=== PATIENT | female | born 1995 | race Caucasian/White ===

== ENCOUNTER 2017-06-16 20:56 | Emergency (ER) | payer MEDICAID ==
[~2017-06-16] VITALS: Ht 144.8 cm; Wt 69.9 kg
[2017-06-16 21:21] VITALS: BP 110/66
== END 2017-06-17 01:26 | disposition home or self-care (01) ==
LOC: ER 20:56
DX: J40 Bronchitis, not specified as acute or chronic (principal)

== ENCOUNTER 2017-08-14 20:32 | Emergency (ER) | payer MEDICAID ==
[~2017-08-14] VITALS: Ht 144.8 cm; Wt 69.9 kg
[2017-08-14 20:45] VITALS: BP 123/70
== END 2017-08-15 01:02 | disposition home or self-care (01) ==
LOC: ER 20:32
DX: J40 Bronchitis, not specified as acute or chronic (principal); F17.210 Nicotine dependence, cigarettes, uncomplicated
CPT/HCPCS: 81025

== ENCOUNTER 2017-09-08 21:02 | Emergency (ER) | payer MEDICAID ==
[~2017-09-08] VITALS: Ht 144.8 cm; Wt 69.9 kg
[2017-09-08 21:15] VITALS: BP 131/100
[2017-09-08] MEDS ORDERED: ALBUTEROL SULF 2.5 MG/0.5ML(0.5%) NEB SOLN NEB ONE (22:45)
[2017-09-08] MEDS ORDERED: IPRATROPIUM BROM 0.5 MG/2.5ML INH SOL NEB ONE (22:45)
[2017-09-09] MEDS ORDERED: methylPREDNISolone SOD SUCC 125 MG/2 ML VL ONE (01:28)
[2017-09-09] MEDS ORDERED: methylPREDNISolone SOD SUCC 125 MG/2 ML VL IM ONE (01:30)
[2017-09-09] MEDS ORDERED: ALBUTEROL SULF 2.5 MG/0.5ML(0.5%) NEB SOLN NEB ONE (01:30)
[2017-09-09] MEDS ORDERED: IPRATROPIUM BROM 0.5 MG/2.5ML INH SOL NEB ONE (01:30)
== END 2017-09-09 02:11 | disposition home or self-care (01) ==
LOC: ER 21:02
DX: J45.901 Unspecified asthma with (acute) exacerbation (principal); F17.210 Nicotine dependence, cigarettes, uncomplicated
CPT/HCPCS: 71045; 81025; 94640; 96372; 99285; J2930

== ENCOUNTER 2017-09-09 16:45 | Emergency (ER) | payer MEDICAID ==
[~2017-09-09] VITALS: Ht 144.8 cm; Wt 69.9 kg
[2017-09-09 17:06] VITALS: BP 142/86
[2017-09-09 18:22] LABS: Alcohol, Urine < 3.0 mg/dL (0-5); Amphetamine Screen, Urine NEGATIVE (NEGATIVE); Barbiturate Scree,Urine NEGATIVE (NEGATIVE); Benzodiazephine Screen, Urine NEGATIVE (NEGATIVE); Cannabinoid Screen, Urine POSITIVE (NEGATIVE); Cocaine Screen, Urine NEGATIVE (NEGATIVE); Opiate Scree,Urine NEGATIVE (NEGATIVE); Phencyclidine Screen, Urine NEGATIVE (NEGATIVE)
== END 2017-09-09 17:47 | disposition home or self-care (01) ==
LOC: EDBD 16:45 → ER 16:45
DX: R07.89 Other chest pain (principal); J45.909 Unspecified asthma, uncomplicated; F17.210 Nicotine dependence, cigarettes, uncomplicated; Z59.0 Homelessness
CPT/HCPCS: 80307; 93005

== ENCOUNTER 2017-09-17 13:21 | Emergency (ER) | payer MEDICAID ==
[~2017-09-17] VITALS: Ht 144.8 cm; Wt 68.0 kg
[2017-09-17 13:42] VITALS: BP 137/88
[2017-09-17 13:58] LABS: Urine Bacteria NONE SEEN /hpf (None Seen); Urine Blood Negative /uL (Negative); Urine Specific Gravity 1.002 (1.001-1.035); Urine WBC <1 /hpf (0 - 5)
[2017-09-17 16:07] LABS: Basophils # (auto) 0.1 uL; Basophils % (auto) 0.7 % (0.0-2.0); Eosinophils # (auto) 0.6 uL; Eosinophils % (auto) 5.6 % (0.0-7.0); Hematocrit 42.3 % (36.0-46.0); Hemoglobin 14.4 g/dL (12.2-16.2); Lymphocytes # (auto) 2.1 uL; Lymphocytes % (auto) 21.7 % (10.0-50.0); Mean Corpuscular Hemoglobin 30.9 pg (28.0-32.0); Mean Corpuscular Volume 90.8 fL (80.0-100.0); Monocytes # (auto) 0.8 uL; Monocytes % (auto) 7.9 % (0.0-12.0); Neutrophils # (auto) 6.3 uL; Neutrophils % (auto) 64.1 % (37.0-80.0); Nucleated Red Blood Cells % 0.1 %; Platelet Count (auto) 425 10^3/uL (140-450); Red Blood Cells 4.66 10^6/uL (4.0-5.20); Red Cell Distribution Width 13.7 % (11.8-14.3); White Blood Cell 9.9 10^3/uL (4.4-10.8)
[2017-09-17 16:09] LABS: Alcohol, Urine < 3.0 mg/dL (0-5); Amphetamine Screen, Urine NEGATIVE (NEGATIVE); Barbiturate Scree,Urine NEGATIVE (NEGATIVE); Benzodiazephine Screen, Urine NEGATIVE (NEGATIVE); Cannabinoid Screen, Urine POSITIVE (NEGATIVE); Cocaine Screen, Urine NEGATIVE (NEGATIVE); Opiate Scree,Urine NEGATIVE (NEGATIVE); Phencyclidine Screen, Urine NEGATIVE (NEGATIVE)
[2017-09-17 16:21] LABS: Albumin 3.7 g/dL (3.4-5.0); BUN/Creatinine Ratio 5.2; Calcium 8.3 mg/dL (8.5-10.1); Potassium 3.5 mmol/L (3.5-5.1)
[2017-09-17 16:23] LABS: Bilirubin, Total 0.3 mg/dL (0.2-1.0); Total Protein 7.2 g/dL (6.4-8.2)
== END 2017-09-17 16:03 | disposition home or self-care (01) ==
LOC: ER 13:21 → EDBD 13:21 → ER 16:03
DX: K59.00 Constipation, unspecified (principal); R10.84 Generalized abdominal pain; J45.909 Unspecified asthma, uncomplicated; F17.210 Nicotine dependence, cigarettes, uncomplicated; E66.9 Obesity, unspecified; Z68.32 Body mass index [BMI] 32.0-32.9, adult; Z76.0 Encounter for issue of repeat prescription; Z90.49 Acquired absence of other specified parts of digestive tract
CPT/HCPCS: 36415; 74022; 80053; 80307; 81001; 81025; 83690; 85025

== ENCOUNTER 2018-09-03 05:15 | Emergency (ER) | payer MEDICAID ==
[~2018-09-03] VITALS: Ht 144.8 cm; Wt 60.8 kg
[2018-09-03 07:26] LABS: Basophils # (auto) 0 uL; Basophils % (auto) 0.5 % (0.0-2.0); Eosinophils # (auto) 0.1 uL; Eosinophils % (auto) 1.8 % (0.0-7.0); Hematocrit 43.5 % (36.0-46.0); Hemoglobin 14.6 g/dL (12.2-16.2); Lymphocytes # (auto) 1.7 uL; Lymphocytes % (auto) 20.7 % (10.0-50.0); Mean Corpuscular Hemoglobin 30.7 pg (28.0-32.0); Mean Corpuscular Hgb Conc. 33.5 g/dL (32.0-36.0); Mean Corpuscular Volume 91.5 fL (80.0-100.0); Monocytes # (auto) 0.4 uL; Monocytes % (auto) 4.9 % (0.0-12.0); Neutrophils # (auto) 5.9 uL; Neutrophils % (auto) 72.1 % (37.0-80.0); Nucleated Red Blood Cells % 0.1 %; Platelet Count (auto) 338 10^3/uL (140-450); Red Blood Cells 4.76 10^6/uL (4.0-5.20); Red Cell Distribution Width 13.4 % (11.8-14.3); White Blood Cell 8.1 10^3/uL (4.4-10.8)
[2018-09-03 07:53] LABS: Alanine Aminotransferase 27 U/L (13-56); Albumin 4.3 g/dL (3.4-5.0); Anion Gap 9 (5-15); Aspartate Aminotransferase 17 U/L (15-37); Blood Alcohol < 3.0 mg/dL (0-5); Blood Urea Nitrogen 6 mg/dL (7-18); Calcium 8.5 mg/dL (8.5-10.1); Carbon Dioxide 22 mmol/L (21-32); Chloride 109 mmol/L (98-107); GFR African American 157 mL/min; GFR Non-African American 129 mL/min; Glucose 91 mg/dL (74-106); Potassium 3.3 mmol/L (3.5-5.1); Salicylate 2.3 mg/dL (2.8-20.0); Sodium 140 mmol/L (136-145)
[2018-09-03 07:56] LABS: Alkaline Phosphatase 37 U/L (45-117); Bilirubin, Total 0.6 mg/dL (0.2-1.0); Total Protein 7.9 g/dL (6.4-8.2)
[2018-09-03 08:01] LABS: Acetaminophen < 2.0 ug/mL (10-30)
[2018-09-03] MEDS ORDERED: ALPRAZolam 0.5 MG TAB PO ONE (08:15)
[2018-09-03] MEDS ORDERED: OLANZapine 5 MG TAB PO ONE (08:15)
[2018-09-03 08:57] LABS: Urine Pregnacy Test Negative (Negative)
[2018-09-03 09:03] LABS: Urine Bacteria MOD /hpf (None Seen); Urine Blood 3+ /uL (Negative); Urine Budding Yeast OCCASIONAL /hpf (None Seen); Urine Mucus FEW (None Seen); Urine Specific Gravity 1.035 (1.001-1.035); Urine WBC 12 /hpf (0 - 5)
[2018-09-03 09:14] LABS: Alcohol, Urine < 3.0 mg/dL (0-5); Amphetamine Screen, Urine NEGATIVE (NEGATIVE); Barbiturate Scree,Urine NEGATIVE (NEGATIVE); Benzodiazephine Screen, Urine POSITIVE (NEGATIVE); Cannabinoid Screen, Urine POSITIVE (NEGATIVE); Cocaine Screen, Urine NEGATIVE (NEGATIVE); Opiate Scree,Urine NEGATIVE (NEGATIVE); Phencyclidine Screen, Urine NEGATIVE (NEGATIVE)
[2018-09-03] MEDS ORDERED: POTASSIUM EFFERVESENT TAB 25 MEQ PO ONE (10:15)
[2018-09-03] MEDS ORDERED: CIPROFLOXACIN HCL 500 MG TAB PO ONE (10:15)
[2018-09-03 13:12] VITALS: BP 109/71
== END 2018-09-03 13:27 | disposition short-term general hospital (02) ==
LOC: EDBD 05:15 → ER 05:15
DX: F31.9 Bipolar disorder, unspecified (principal); F20.9 Schizophrenia, unspecified; E87.6 Hypokalemia; F12.10 Cannabis abuse, uncomplicated; N39.0 Urinary tract infection, site not specified; J45.909 Unspecified asthma, uncomplicated; Z59.0 Homelessness; Z87.891 Personal history of nicotine dependence; Z91.14 Patient's other noncompliance with medication regimen
CPT/HCPCS: 36415; 80053; 80307; 80320; 80329; 81001; 81025; 85025